=== PATIENT | female | born 1990 | race Caucasian/White ===

== ENCOUNTER 2016-12-31 08:28 | Emergency (ER) | payer OTHER ==
[~2016-12-31] VITALS: Ht 162.6 cm; Wt 88.7 kg
[2016-12-31] MEDS ORDERED: VENTAER IN (08:42)
[2016-12-31] MEDS ORDERED: NUVAMIS2 VA (08:42)
[2016-12-31] MEDS ORDERED: CETI10TA PO (09:41)
[2016-12-31] MEDS ORDERED: TESS100C PO (09:41)
[2016-12-31] MEDS ORDERED: FLON1SPR (09:41)
[2016-12-31 09:52] VITALS: BP 131/78
--- NOTE | 2016-12-31 14:31 | REP ---
Chest x-ray: Two views. History: Productive cough. History of pneumonia. . Comparison study: November 16, 2015 . Findings: The lungs are well inflated and free of infiltrate. The pleural angles are sharp. The heart size is normal. Pulmonary vasculature is not increased. No significant bony abnormality is seen. Impression: Negative chest x-ray. Signed by Adam Johns MD 12/31/2016 09:14 A
== END 2016-12-31 09:53 | disposition home or self-care (01) ==
LOC: M ED 08:28
DX: J06.9 Acute upper respiratory infection, unspecified (principal); J45.909 Unspecified asthma, uncomplicated; Z87.01 Personal history of pneumonia (recurrent)

== ENCOUNTER 2017-02-06 10:49 | Emergency (ER) | payer OTHER ==
[~2017-02-06] VITALS: Ht 162.6 cm; Wt 88.6 kg
[~2017-02-06 10:49] MED LIST: CETI10TA PO; FLON1SPR; NUVAMIS2 VA; TESS100C PO; VENTAER IN
[2017-02-06 10:51] VITALS: BP 167/94
[2017-02-06] MEDS ORDERED: CLAR10CA3 PO (11:04)
[2017-02-06] MEDS ORDERED: IBUP80TA PO (12:59)
[2017-02-06] MEDS ORDERED: ROBA500T PO (12:59)
[2017-02-06] MEDS ORDERED: METHOCARBAMOL 500 MG TAB PO ONE (13:00)
[2017-02-06] MEDS ORDERED: IBUPROFEN 800 MG TAB PO ONE (13:00)
== END 2017-02-06 13:10 | disposition home or self-care (01) ==
LOC: M ED 10:49
DX: S23.3XXA Sprain of ligaments of thoracic spine, initial encounter (principal); X50.9XXA Other and unspecified overexertion or strenuous movements or postures, initial encounter; Y92.89 Other specified places as the place of occurrence of the external cause; Y93.E5 Activity, floor mopping and cleaning; Y99.8 Other external cause status; J45.909 Unspecified asthma, uncomplicated; Z79.899 Other long term (current) drug therapy

== ENCOUNTER 2018-01-14 05:36 | Emergency (ER) | payer OTHER ==
[2018-01-14] MEDS: ALBUTEROL 90 MCG/ACT 8GM HFA INHALER INH (06:31)
[2018-01-14] MEDS: IPRATROPIUM 0.5MG/ALBUTEROL 2.5MG INH SOL UD 3ML (DUONEB)(J7620) NEB (06:32)
== END 2018-01-14 07:59 | disposition home or self-care (01) ==
LOC: M ED 05:36
DX: J44.1 Chronic obstructive pulmonary disease with (acute) exacerbation (principal); Z79.3 Long term (current) use of hormonal contraceptives; Z79.899 Other long term (current) drug therapy
CPT/HCPCS: 94640